=== PATIENT | male | born 1995 | race Caucasian/White ===

== ENCOUNTER 2022-12-01 10:55 | Inpatient (IN) | payer MEDICAID ==
[~2022-12-01] VITALS: Ht 180.3 cm; Wt 107.1 kg
[2022-12-01 12:15] LABS: BASOPHILS % (AUTO) 0.6 % (0.0-2.0); EOSINOPHILS % (AUTO) 0.5 % (1.0-6.0); HEMATOCRIT 44.6 % (41-53); HEMOGLOBIN 14.9 g/dL (13.5-17.5); LYMPHOCYTES # (AUTO) 2.4 K/uL (1.0-4.8); LYMPHOCYTES % (AUTO) 26.9 % (22.0-44.0); MEAN CORPUSCULAR HEMOGLOBIN 29.3 pg (26.0-34.0); MEAN CORPUSCULAR HGB CONC 33.3 G/dL (31.0-37.0); MEAN CORPUSCULAR VOLUME 88 fL (80-100); MONOCYTES # (AUTO) 0.8 K/uL (0.1-1.0); MONOCYTES % (AUTO) 9.4 % (2.0-9.0); NEUTROPHILS # (AUTO) 5.6 K/uL (1.8-7.7); NEUTROPHILS % (AUTO) 62.6 % (40.0-70.0); PLATELET COUNT (AUTO) 224 K/uL (150-450); RED BLOOD CELL COUNT(AUTO) 5.07 MIL/uL (4.50-5.90); RED CELL DISTRIBUTION WIDTH 13.6 % (11.5-14.5)
[2022-12-01 12:28] LABS: ANION GAP 6 mmol/L (8-16); CALCIUM, TOTAL 8.8 mg/dL (8.8-10.5); CARBON DIOXIDE 29 mmol/L (22-29); CHLORIDE 107 mmol/L (98-107); CREATININE 1.06 mg/dL (0.60-1.30); GLOMERULAR FILTR. RATE CALC > 60 mL/min (>60); GLUCOSE,RANDOM 92 mg/dL (70-110); SODIUM SERUM 142 mmol/L (136-145)
[2022-12-01 12:33] LABS: ALANINE AMINOTRANSFERASE 27 U/L (12-78); ALBUMIN 3.7 g/dL (3.4-5.0); ALKALINE PHOSPHATASE 77 U/L (46-116); ASPARTATE AMINOTRANSFERASE 15 U/L (15-37); BILIRUBIN,TOTAL 0.2 mg/dL (0.1-1.0); TOTAL PROTEIN, SERUM 7.1 g/dL (6.4-8.2)
[2022-12-01 12:56] LABS: AMPHET/METH SCREEN,URINE NEGATIVE (NEGATIVE); BARBITURATE SCREEN, URINE NEGATIVE (NEGATIVE); BENZODIAZEPINES SCREEN,URINE NEGATIVE (NEGATIVE); CANNABINOID SCREEN,URINE POSITIVE (NEGATIVE); COCAINE SCREEN,URINE NEGATIVE (NEGATIVE); METHADONE SCREEN, URINE NEGATIVE (NEGATIVE); OPIATE SCREEN,URINE NEGATIVE (NEGATIVE); PHENCYCLIDINE SCREEN,URINE NEGATIVE (NEGATIVE)
[2022-12-01] MEDS ORDERED: PROMETHAZINE HCL 25 MG TABLET PO PRN (13:00)
[2022-12-01] MEDS ORDERED: ACETAMINOPHEN 325 MG TABLET PO PRN (13:00)
[2022-12-01] MEDS ORDERED: QUEtiapine FUMARATE 100 MG TABLET PO PRN (13:00)
[2022-12-01] MEDS ORDERED: LOPERAMIDE HCL 2 MG CAPSULE PO PRN (13:00)
[2022-12-01] MEDS ORDERED: TUBERCULIN, PURIFIED PROTEIN DERIVATIVE 5 TU/0.1 ML SYRINGE ID ONE (13:00)
[2022-12-01] MEDS ORDERED: MAGNESIUM HYDROXIDE SUSPENSION 30 ML UDCUP PO PRN (13:00)
[2022-12-01] MEDS ORDERED: GuaiFENesin/D-METHORPHAN [SUGAR-FREE] 200-20MG/10 ML SYRUP UDCUP PO PRN (13:00)
[2022-12-01] MEDS ORDERED: MAG HYDROX/AL HYDROX/SIMETH ES 30 ML SUSPENSION UDCUP PO PRN (13:00)
[2022-12-01 13:46] LABS: COVID AG,FIA SOURCE NASAL SWAB
[2022-12-01] MEDS: MELATONIN 5 MG TABLET PO SCH (20:59)
[2022-12-01] MEDS: DIVALPROEX SODIUM 500 MG ER TABLET PO SCH (20:59)
[2022-12-01] MEDS ORDERED: QUEtiapine FUMARATE 100 MG TABLET PO SCH (21:00)
[2022-12-01] MEDS: ZOLPIDEM TARTRATE 10 MG TABLET PO PRN (21:00)
[2022-12-01] MEDS: THIAMINE 100 MG TABLET PO SCH (21:00)
[2022-12-01] MEDS: LORazepam 2 MG TABLET PO PRN (21:00)
[2022-12-01 22:10] VITALS: BP 136/87
[2022-12-01] MEDS ORDERED: LURASIDONE HCL 20 MG TABLET PO PRN (22:15)
[2022-12-02] MEDS ORDERED: PNEUMOCOCCAL VACCINE POLYVALENT 0.5 ML VIAL [PPSV23] IM. ONE (03:30)
[2022-12-02] MEDS ORDERED: LURASIDONE HCL 40 MG TABLET PO SCH (07:00)
[2022-12-02] MEDS: OMEGA-3/DHA/EPA/FISH OIL 1,000 MG CAPSULE PO SCH (08:06)
[2022-12-02] MEDS: DIVALPROEX SODIUM 500 MG ER TABLET PO SCH ×4 (08:06→20:22)
[2022-12-02] MEDS: NALTREXONE HCL 50 MG TABLET PO SCH (08:06)
[2022-12-02] MEDS: GABAPENTIN 300 MG CAPSULE PO SCH ×4 (08:07→20:22)
[2022-12-02] MEDS: FOLIC ACID 1 MG TABLET PO SCH (08:07)
[2022-12-02] MEDS: MULTIVITAMINS WITH MINERALS, THERAPEUTIC TABLET PO SCH (08:07)
[2022-12-02] MEDS: THIAMINE 100 MG TABLET PO SCH ×2 (08:07→16:50)
[2022-12-02] MEDS: SULFAMETHOX/TRIMETH DS 800-160 MG/TABLET PO SCH ×2 (08:11→16:50)
[2022-12-02 08:15] VITALS: BP 116/80
[2022-12-02 08:18] LABS: FREE T4 (FREE THYROXINE) 1.22 ng/dL (0.76-1.46); THYROID STIMULATING HORMONE 1.29 uIU/mL (0.36-3.74)
[2022-12-02] MEDS ORDERED: CEPHALEXIN MONOHYDRATE 500 MG CAPSULE PO SCH (09:00)
[2022-12-02] MEDS ORDERED: FLUoxetine HCL 20 MG CAPSULE PO SCH (09:00)
[2022-12-02] MEDS: LORazepam 2 MG TABLET PO PRN (09:11)
[2022-12-02 16:33] VITALS: BP 145/66
[2022-12-02] MEDS: MELATONIN 5 MG TABLET PO SCH (20:22)
[2022-12-02] MEDS: PRAZOSIN HCL 1 MG CAPSULE PO SCH (20:43)
[2022-12-02] MEDS: ZOLPIDEM TARTRATE 10 MG TABLET PO PRN (20:43)
[2022-12-02 20:48] VITALS: BP 145/68
[2022-12-02] MEDS ORDERED: PRAZOSIN HCL 2 MG CAPSULE PO SCH (21:00)
[2022-12-03] MEDS: LURASIDONE HCL 60 MG TABLET PO SCH (06:33)
[2022-12-03 08:41] VITALS: BP 123/75
[2022-12-03] MEDS: THIAMINE 100 MG TABLET PO SCH ×2 (09:14→17:33)
[2022-12-03] MEDS: NALTREXONE HCL 50 MG TABLET PO SCH (09:14)
[2022-12-03] MEDS: GABAPENTIN 300 MG CAPSULE PO SCH ×2 (09:14→13:00)
[2022-12-03] MEDS: SULFAMETHOX/TRIMETH DS 800-160 MG/TABLET PO SCH ×2 (09:14→17:33)
[2022-12-03] MEDS: FOLIC ACID 1 MG TABLET PO SCH (09:14)
[2022-12-03] MEDS: OMEGA-3/DHA/EPA/FISH OIL 1,000 MG CAPSULE PO SCH (09:15)
[2022-12-03] MEDS: MULTIVITAMINS WITH MINERALS, THERAPEUTIC TABLET PO SCH (09:15)
[2022-12-03] MEDS: DIVALPROEX SODIUM 500 MG ER TABLET PO SCH ×3 (09:15→20:35)
[2022-12-03] MEDS ORDERED: GABAPENTIN 300 MG CAPSULE PO SCH (17:00)
[2022-12-03] MEDS: GABAPENTIN 100 MG CAPSULE PO SCH ×2 (17:33→20:34)
[2022-12-03 20:24] VITALS: BP 117/62
[2022-12-03] MEDS: MELATONIN 5 MG TABLET PO SCH (20:35)
[2022-12-03] MEDS: PRAZOSIN HCL 1 MG CAPSULE PO SCH (21:12)
[2022-12-04] MEDS: LURASIDONE HCL 60 MG TABLET PO SCH (06:43)
[2022-12-04] MEDS: LORazepam 2 MG TABLET PO PRN (06:52)
[2022-12-04] MEDS: HydrOXYzine PAMOATE 50 MG CAPSULE PO PRN (06:52)
[2022-12-04 08:29] VITALS: BP 142/85
[2022-12-04] MEDS: FOLIC ACID 1 MG TABLET PO SCH (09:55)
[2022-12-04] MEDS: THIAMINE 100 MG TABLET PO SCH ×2 (09:55→17:37)
[2022-12-04] MEDS: SULFAMETHOX/TRIMETH DS 800-160 MG/TABLET PO SCH ×2 (09:55→17:37)
[2022-12-04] MEDS: NALTREXONE HCL 50 MG TABLET PO SCH (09:55)
[2022-12-04] MEDS: MULTIVITAMINS WITH MINERALS, THERAPEUTIC TABLET PO SCH (09:55)
[2022-12-04] MEDS: GABAPENTIN 100 MG CAPSULE PO SCH ×4 (09:56→21:44)
[2022-12-04] MEDS: OMEGA-3/DHA/EPA/FISH OIL 1,000 MG CAPSULE PO SCH (09:56)
[2022-12-04] MEDS: NICOTINE 21 MG/24 HOUR PATCH TD SCH (09:59)
[2022-12-04 20:26] VITALS: BP 139/72
[2022-12-04] MEDS: DIVALPROEX SODIUM 500 MG ER TABLET PO SCH (21:45)
[2022-12-04] MEDS: PRAZOSIN HCL 1 MG CAPSULE PO SCH (22:01)
[2022-12-04] MEDS: MELATONIN 5 MG TABLET PO SCH (22:01)
[2022-12-05] MEDS: LORazepam 2 MG TABLET PO PRN ×2 (04:23→08:58)
[2022-12-05] MEDS: HydrOXYzine PAMOATE 50 MG CAPSULE PO PRN (05:57)
[2022-12-05] MEDS ORDERED: LURASIDONE HCL 80 MG TABLET PO SCH (07:00)
[2022-12-05 08:26] VITALS: BP 135/60
[2022-12-05] MEDS: NALTREXONE HCL 50 MG TABLET PO SCH (08:46)
[2022-12-05] MEDS: MULTIVITAMINS WITH MINERALS, THERAPEUTIC TABLET PO SCH (08:46)
[2022-12-05] MEDS: SULFAMETHOX/TRIMETH DS 800-160 MG/TABLET PO SCH ×2 (08:46→16:27)
[2022-12-05] MEDS: GABAPENTIN 100 MG CAPSULE PO SCH ×3 (08:46→16:27)
[2022-12-05] MEDS: OMEGA-3/DHA/EPA/FISH OIL 1,000 MG CAPSULE PO SCH (08:46)
[2022-12-05] MEDS: NICOTINE 21 MG/24 HOUR PATCH TD SCH (08:47)
[2022-12-05] MEDS: FOLIC ACID 1 MG TABLET PO SCH (08:47)
[2022-12-05] MEDS: THIAMINE 100 MG TABLET PO SCH ×2 (08:47→16:26)
[2022-12-05] MEDS ORDERED: PRAZ1 PO (14:29)
[2022-12-05] MEDS ORDERED: NALT50TA PO (14:29)
[2022-12-05] MEDS ORDERED: OMEG-135 PO (14:29)
[2022-12-05] MEDS ORDERED: GABA-1216 PO (14:29)
[2022-12-05] MEDS ORDERED: LURA80TA4 PO (14:29)
[2022-12-05] MEDS ORDERED: DIVA500T69 PO (14:29)
[2022-12-05] MEDS ORDERED: MELA5TAB40 PO (14:29)
[2022-12-08] MEDS ORDERED: GABA-1201 PO (11:12)
== END 2022-12-05 17:54 | disposition home or self-care (01) | DRG 750 ==
LOC: EMS 11:04 → B3A 18:57 → B2S 12-03 06:06
PROVIDERS: ADMIT Psychiatry & Neurology Psychiatry; ATTEND Psychiatry & Neurology Psychiatry
DX: F25.9 Schizoaffective disorder, unspecified (principal); G93.41 Metabolic encephalopathy; G40.909 Epilepsy, unspecified, not intractable, without status epilepticus; J44.9 Chronic obstructive pulmonary disease, unspecified; F14.10 Cocaine abuse, uncomplicated; F17.200 Nicotine dependence, unspecified, uncomplicated; F41.9 Anxiety disorder, unspecified; Z20.822 Contact with and (suspected) exposure to COVID-19; F31.9 Bipolar disorder, unspecified; F43.10 Post-traumatic stress disorder, unspecified; Z88.0 Allergy status to penicillin; Z88.8 Allergy status to other drugs, medicaments and biological substances; Z59.00 Homelessness unspecified
CPT/HCPCS: 80053; 80061; 80164; 80307; 83036; 84439; 84443; 85025; 86592; 90732; 99285; G0480; Q9967

== ENCOUNTER 2022-12-30 11:40 | Emergency (ER) | payer MEDICAID ==
[~2022-12-30] VITALS: Ht 180.3 cm; Wt 84.5 kg
[~2022-12-30 11:40] MED LIST: DIVA500T69 PO; GABA-1181 PO; LURA60TA4 PO; MELA5TAB40 PO; NALT50TA PO; OMEG-135 PO; PRAZ2 PO; PROP10TA72 PO; SERT-440 PO
[2022-12-30 11:50] VITALS: BP 146/88; PULSE 98; RESP 18; TEMP 98.2
[2022-12-30 12:05] LABS: BASOPHILS % (AUTO) 0.6 % (0.0-2.0); EOSINOPHILS % (AUTO) 0.5 % (1.0-6.0); HEMATOCRIT 45.1 % (41-53); HEMOGLOBIN 15.7 g/dL (13.5-17.5); LYMPHOCYTES # (AUTO) 2.1 K/uL (1.0-4.8); LYMPHOCYTES % (AUTO) 22.5 % (22.0-44.0); MEAN CORPUSCULAR HEMOGLOBIN 30.5 pg (26.0-34.0); MEAN CORPUSCULAR HGB CONC 34.7 G/dL (31.0-37.0); MEAN CORPUSCULAR VOLUME 88 fL (80-100); MONOCYTES # (AUTO) 0.9 K/uL (0.1-1.0); MONOCYTES % (AUTO) 9.6 % (2.0-9.0); NEUTROPHILS # (AUTO) 6.3 K/uL (1.8-7.7); NEUTROPHILS % (AUTO) 66.8 % (40.0-70.0); PLATELET COUNT (AUTO) 224 K/uL (150-450); RED BLOOD CELL COUNT(AUTO) 5.13 MIL/uL (4.50-5.90); RED CELL DISTRIBUTION WIDTH 13.6 % (11.5-14.5)
[2022-12-30 12:16] LABS: ANION GAP 11 mmol/L (8-16); CALCIUM, TOTAL 8.5 mg/dL (8.8-10.5); CARBON DIOXIDE 24 mmol/L (22-29); CHLORIDE 101 mmol/L (98-107); CREATININE 1.06 mg/dL (0.60-1.30); GLOMERULAR FILTR. RATE CALC > 60 mL/min (>60); GLUCOSE,RANDOM 146 mg/dL (70-110); POTASSIUM 3.2 mmol/L (3.5-5.1); SODIUM SERUM 136 mmol/L (136-145)
[2022-12-30 12:22] LABS: ALANINE AMINOTRANSFERASE 30 U/L (12-78); ALBUMIN 3.5 g/dL (3.4-5.0); ALKALINE PHOSPHATASE 94 U/L (46-116); ASPARTATE AMINOTRANSFERASE 19 U/L (15-37); BILIRUBIN,TOTAL 0.4 mg/dL (0.1-1.0); TOTAL PROTEIN, SERUM 7.7 g/dL (6.4-8.2)
[2022-12-30] MEDS ORDERED: LORazepam 1 MG TABLET PO ONE (13:15)
[2022-12-30 13:40] LABS: AMPHET/METH SCREEN,URINE POSITIVE (NEGATIVE); BARBITURATE SCREEN, URINE NEGATIVE (NEGATIVE); BENZODIAZEPINES SCREEN,URINE NEGATIVE (NEGATIVE); CANNABINOID SCREEN,URINE POSITIVE (NEGATIVE); COCAINE SCREEN,URINE NEGATIVE (NEGATIVE); METHADONE SCREEN, URINE NEGATIVE (NEGATIVE); OPIATE SCREEN,URINE NEGATIVE (NEGATIVE); PHENCYCLIDINE SCREEN,URINE NEGATIVE (NEGATIVE)
== END 2022-12-30 14:40 | disposition home or self-care (01) ==
LOC: EMS 11:41
DX: R45.851 Suicidal ideations (principal); F41.9 Anxiety disorder, unspecified; F31.9 Bipolar disorder, unspecified; I10 Essential (primary) hypertension; F20.9 Schizophrenia, unspecified; Z91.148 Patient's other noncompliance with medication regimen for other reason; Z88.0 Allergy status to penicillin; Z88.8 Allergy status to other drugs, medicaments and biological substances
CPT/HCPCS: 99284; 80053; 85025; 36415; 80307; G0480

== ENCOUNTER → 2024-08-30 | Emergency (ER) | payer MEDICARE, OTHER ==
[~2024-08-30] MED LIST changes: +DIVA-112 PO; +DIVA-153 PO; -GABA-1181 PO; -LURA60TA4 PO; -MELA5TAB40 PO; -NALT50TA PO; +NALT50TA6 PO; -OMEG-135 PO; -PRAZ2 PO; -PROP10TA72 PO; -SERT-440 PO; +TRAZ-186 PO; +TRAZ-257 PO; +VENL-67 PO
== END | disposition left against medical advice (07) ==
LOC: EMS 03:12
DX: Z53.21 Procedure and treatment not carried out due to patient leaving prior to being seen by health care provider (principal)

== ENCOUNTER 2024-10-09 13:36 | Emergency (ER) | payer MEDICARE, MEDICAID ==
[~2024-10-09] VITALS: Ht 180.3 cm; Wt 107.3 kg
[2024-10-09] MEDS ORDERED: SERT-439 PO (13:46)
[2024-10-09] MEDS ORDERED: BUSP10TA23 PO (13:46)
[2024-10-09 14:17] VITALS: BP 158/90; PULSE 97; RESP 18; TEMP 98; O2SAT 98
[2024-10-09] MEDS: LORazepam 1 MG TABLET PO ONE (14:19)
[2024-10-09 14:41] LABS: BASOPHILS % (AUTO) 0.7 % (0.0-2.0); EOSINOPHILS % (AUTO) 0.9 % (1.0-6.0); HEMATOCRIT 42.4 % (41-53); HEMOGLOBIN 14.1 g/dL (13.5-17.5); LYMPHOCYTES # (AUTO) 2.6 K/uL (1.0-4.8); LYMPHOCYTES % (AUTO) 31.2 % (22.0-44.0); MEAN CORPUSCULAR HEMOGLOBIN 28.6 pg (26.0-34.0); MEAN CORPUSCULAR HGB CONC 33.2 G/dL (31.0-37.0); MEAN CORPUSCULAR VOLUME 86 fL (80-100); MONOCYTES # (AUTO) 0.7 K/uL (0.1-1.0); MONOCYTES % (AUTO) 8.6 % (2.0-9.0); NEUTROPHILS # (AUTO) 4.9 K/uL (1.8-7.7); NEUTROPHILS % (AUTO) 58.6 % (40.0-70.0); PLATELET COUNT (AUTO) 240 K/uL (150-450); RED BLOOD CELL COUNT(AUTO) 4.92 MIL/uL (4.50-5.90); WHITE BLOOD COUNT (AUTO) 8.4 K/uL (4.5-11.0)
[2024-10-09 14:56] LABS: ANION GAP 6 mmol/L (8-16); CALCIUM, TOTAL 8.7 mg/dL (8.8-10.5); CARBON DIOXIDE 30 mmol/L (22-29); CHLORIDE 103 mmol/L (98-107); CREATININE 1.01 mg/dL (0.60-1.30); GLOMERULAR FILTR. RATE CALC > 60 mL/min (>60); GLUCOSE,RANDOM 92 mg/dL (70-110); POTASSIUM 4.4 mmol/L (3.5-5.1); SODIUM SERUM 139 mmol/L (136-145); UREA NITROGEN, BLOOD 18 mg/dL (7-18)
[2024-10-09 15:07] LABS: AMPHET/METH SCREEN,URINE NEGATIVE (NEGATIVE); BARBITURATE SCREEN, URINE POSITIVE (NEGATIVE); BENZODIAZEPINES SCREEN,URINE NEGATIVE (NEGATIVE); CANNABINOID SCREEN,URINE NEGATIVE (NEGATIVE); COCAINE SCREEN,URINE NEGATIVE (NEGATIVE); METHADONE SCREEN, URINE POSITIVE (NEGATIVE); OPIATE SCREEN,URINE NEGATIVE (NEGATIVE); PHENCYCLIDINE SCREEN,URINE NEGATIVE (NEGATIVE)
[2024-10-09 15:14] LABS: ALCOHOL, URINE DRUG SCREEN NEGATIVE (NEGATIVE)
[2024-10-09 15:20] LABS: ALCOHOL, BLOOD (SERUM) < 3 mg/dL (0-10)
== END 2024-10-09 15:49 | disposition home or self-care (01) ==
LOC: EMS 13:48
DX: F41.9 Anxiety disorder, unspecified (principal); I10 Essential (primary) hypertension; F17.210 Nicotine dependence, cigarettes, uncomplicated; F20.9 Schizophrenia, unspecified; F31.9 Bipolar disorder, unspecified; Z88.0 Allergy status to penicillin; Z88.8 Allergy status to other drugs, medicaments and biological substances; Z79.899 Other long term (current) drug therapy
CPT/HCPCS: 99283; 80048; 85025; 36415; 80307; G0480